=== PATIENT | male | born 1980 | race African-American/Black ===

== ENCOUNTER 2021-07-21 15:40 | Outpatient (CLI) | payer OTHER, SELFPAY ==
--- NOTE | ~2021-07-21 | XR_ITS ---
XR sacrum coccyx min 2V DATE: 07/21/2021 16:09 INDICATION: Sacrococcygeal disorder TECHNIQUE: AP, angled AP and lateral views of sacrum and coccyx COMPARISON: None FINDINGS: The sacral iliac joints appear normal. The pubic symphysis is intact. No sacral fracture or bone destruction. IMPRESSION: Negative Reviewed, dictated and finalized at location A. AREA NETWORK ADMINISTRATOR IMPRESSION: Negative
--- NOTE | 2021-07-21 16:28 | ECG_ITS ---
Measurements Intervals [place] Rate: 69 P: 48 AL: 142 QRS: 28 QRSD: 88 T: 23 QT: 380 QTc: 407 Interpretive Statements SINUS RHYTHM NORMAL ECG Electronically Signed On 07-21-2021 20:13:54 METAL TRIM ERECTOR by Miguel Keita D.O.
[2021-07-21 16:32] LABS: Hematocrit 44.6 % (42.0-52.0); Mean Corpuscular HGB Conc 31.4 g/dl (32-36); Mean Corpuscular Hemoglobin 27.2 pg (26-34); Mean Corpuscular Volume 86.8 fl (80-100); Mean Platelet Volume 9.5 fl (7.4-10.4); Platelet Count Result 284 k/mm3 (150-375); Red Blood Count 5.14 M/mm3 (4.6-6.20); Red Cell Distribution Width 11.7 % (11.5-14.5); White Blood Count 9.2 K/mm3 (4.5-10.0)
[2021-07-21 16:45] LABS: Alanine Aminotransferase 41 U/L (4-50); Albumin Level 4.4 g/dL (3.5-5.1); Alkaline Phosphatase 73 U/L (38-126); Anion Gap 7 mmol/L (8-16); Aspartate Amino Transferase 28 U/L (17-59); Bilirubin,Total 0.3 mg/dL (0.2-1.3); Blood Urea Nitrogen 17 mg/dL (9-20); Calcium 9.4 mg/dL (8.4-10.2); Carbon Dioxide 28 mmol/L (22-30); Chloride 103 mmol/L (98-107); Cholesterol 192 mg/dL (0-200); Estimated Glomerular Filt Rate > 60; Glucose 90 mg/dL (65-110); HDL Direct 44 mg/dL; Sodium 138 mmol/L (137-145); Triglycerides 135 mg/dL (<150)
[2021-07-21 16:56] LABS: LDL Cholesterol Direct 111 mg/dL
[2021-07-21 17:15] LABS: Prostate Specific Antigen 1.2 ng/mL (< OR = 4.0)
== END 2021-07-21 15:41 | disposition home or self-care (01) ==
PROVIDERS: PCP Family Medicine; Visit Provider Nurse Practitioner Family
DX: R00.2 Palpitations (principal); Z68.38 Body mass index [BMI] 38.0-38.9, adult; Z13.220 Encounter for screening for lipoid disorders; Z12.5 Encounter for screening for malignant neoplasm of prostate; M53.3 Sacrococcygeal disorders, not elsewhere classified
CPT/HCPCS: 36415; 72220; 80053; 80061; 84153; 84443; 85027; 93005; G0103

== ENCOUNTER 2023-10-31 09:28 | Day surgery (SDC) | payer OTHER, SELFPAY ==
[2023-10-04 13:10] VITALS: BMI 36.3
[2023-10-08 10:19] VITALS: BMI 36.2
[2023-10-31 10:04] VITALS: BP 129/85; PULSE 71; RESP 16; TEMP 37; O2SAT 98
--- NOTE | 2023-10-31 10:32 | P.PNAN_ITS ---
Anes - Initial Pre Proc Eval Procedure: Operation Date: 10/31/23 11:30 Proposed Procedures p Diagnostic Colonoscopy - Alex Tracey MD Date/Time: 10/31/23 10:32 Surgeon: Alex Tracey MD Pre Op Diagnosis: Family History Malignant Neoplasm of Digestive Sys Patient Data Age: 43 Gender: M Height: 1.75 m Weight: 112.85 kg Last Vital Signs Temp 37.0 C 10/31/23 10:04 Pulse 71 10/31/23 10:04 Resp 16 10/31/23 10:04 BP 129/85 10/31/23 10:04 Pulse Ox 98 10/31/23 10:04 O2 Del Method Room Air 10/31/23 10:04 Allergies Allergy/AdvReac Type Severity Reaction Status Date / Time No Known Allergies Allergy Verified 10/31/23 10:10 Home Medications Medication Instructions Recorded Confirmed Type No Home Medications 10/31/23 10/31/23 History Patient hx anesthesia problems: none Family hx anesthesia problems: none Results Review: All pre-operative results and documents have been reviewed as part of the pre- operative evaluation. [facility] Past Medical History Medical History (Updated 10/03/23 @ 17:11 by Derrek Silva NP) Adult BMI 37.0-37.9 kg/sq m BMI 35.0-35.9,adult BMI 36.0-36.9,adult BMI 38.0-38.9,adult Palpitation PVC (premature ventricular contraction) Screening and evaluation for vasectomy Screening for lipid disorders Viral wart on finger Surgical History Surgical History H/O vasectomy Family History Family History Father Family history of malignant neoplasm Diabetes mellitus Hypertension Mother Asthma COVID-19 Sibling No problems noted. 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 Informed Consent: The patient's anesthetic plan and its attendant risks and benefits were discussed with the patient/family/POA. Questions were solicited and answers provided to the satisfaction of the patient/family/POA.
[2023-10-31] MEDS: LACTATED RINGERS 1,000 ML 150 ML IV CONT (10:42)
--- NOTE | 2023-10-31 10:59 | PM.HPGS ---
History of Present Illness History of Present Illness Consent: Risks, benefits, and alternatives have been discussed and questions answered. Patient agrees to proceed with procedure. Chief complaint: Screening colonoscopy Narrative: Kasi Raymond Jr. is a 43 year old male screening colonoscopy. Family history is significant for an aunt and an uncle have had colon cancer. Patient denies any first-degree relatives with colon polyps or cancer. Patient reports his current weight appetite and bowel movements are normal. He denies abdominal pain. He has had no bleeding. Review of Systems Review of Systems: All systems reviewed & are unremarkable except as noted in HPI and below PMFSH Past Medical History Medical History (Updated 10/31/23 @ 11:01 by Alex Tracey MD) Adult BMI 37.0-37.9 kg/sq m BMI 35.0-35.9,adult BMI 36.0-36.9,adult BMI 38.0-38.9,adult Palpitation PVC (premature ventricular contraction) Screening and evaluation for vasectomy Screening for lipid disorders Viral wart on finger Surgical History Surgical History H/O vasectomy Family History Family History Father Family history of malignant neoplasm Diabetes mellitus Hypertension Mother Asthma COVID-19 Sibling No problems noted. Social History Social History Smoking status: Never smoker Second hand tobacco smoke exposure: No Alcohol intake: current Substance use: never Substance use type: does not use Lack of Transportation: No Lack of Food: Never True Current Housing: I Have Housing Concerned About Future Housing: No Difficulty Paying Gas/Electric Bills: No Difficulty Paying for Meds: No Currently Unemployed: No Education: Associate Degree Difficulty w/ Childcare or Family Care: No Living arrangements: with family Occupation/Education: occupation Additional occupation/education comments: [employer] Gender identity (if verbalized by the patient): Male Spiritual care concerns: No Meds Home Medications and Allergies Home Medications Medication Instructions Recorded Confirmed Type No Home Medications 10/31/23 10/31/23 History Allergies Allergy/AdvReac Type Severity Reaction Status Date / Time No Known Allergies Allergy Verified 10/31/23 10:10 Vital Signs Vital Signs - 24 hr 10/31/23 10:04 Temperature 98.6 F Pulse Rate 71 Respiratory Rate 16 Blood Pressure 129/85 Pulse Oximetry 98 Oxygen Delivery Room Air Exam Narrative: Physical exam reveals patient to be alert. Vital signs stable. HEENT exam is unremarkable. Patient is anicteric. Lungs are clear to auscultation and percussion. Heart is without murmur or extra sounds. Abdomen bowel sounds are present soft nontender with no hepatosplenomegaly. Digital external rectal exam normal. Assessment and Plan Assessment and plan (1) Screen for colon cancer: Code(s): Z12.11 - Encounter for screening for malignant neoplasm of colon Status: Acute Assessment and Plan: Patient presents today for colonoscopy screening. He does have a family history of colon cancer in an aunt and an uncle.
[2023-10-31 11:41] VITALS: BP 124/69; PULSE 62; RESP 18; O2SAT 98
--- NOTE | 2023-10-31 11:50 | WPDANESPN ---
Anes - Prog Note Post-Op Date/Time: 10/31/23 11:50 Cardiovascular status: normal Respiratory status: normal Airway patency: baseline Mental status: baseline Post-Op hydration status: normal Vital Signs: Last Vital Signs Temp 37.0 C 10/31/23 10:04 Pulse 62 10/31/23 11:41 Resp 18 10/31/23 11:41 BP 124/69 10/31/23 11:41 Pulse Ox 98 10/31/23 11:41 O2 Del Method Room Air 10/31/23 11:41 Pain Score (VAS): 0/10 I/O: Intake & Output 10/30/23 10/31/23 10/31/23 23:59 07:59 15:59 Intake Total 400 Balance 400 Patient Feedback: Patient satisfied with anesthetic care.
[2023-10-31 11:51] VITALS: BP 124/69; PULSE 61; RESP 18; O2SAT 100
[2023-10-31 12:01] VITALS: BP 132/76; PULSE 66; RESP 18; O2SAT 100
== END 2023-10-31 12:20 | disposition home or self-care (01) ==
PROVIDERS: PCP Family Medicine; Visit Provider Internal Medicine Gastroenterology
PROC: 0DJD8ZZ Inspection of Lower Intestinal Tract, Via Natural or Artificial Opening Endoscopic (ICD-10-PCS; CPT 45378; principal; 2023-10-31 11:30)
DX: Z12.11 Encounter for screening for malignant neoplasm of colon (principal); D12.3 Benign neoplasm of transverse colon; D12.8 Benign neoplasm of rectum
CPT/HCPCS: 45380

== ENCOUNTER 2023-10-31 12:32 | Outpatient (NON) | payer OTHER, SELFPAY | END 2023-10-31 12:33 | disposition home or self-care (01) | LOC: ANHLAB 11-01 12:33 | PROVIDERS: PCP Family Medicine; Visit Provider Internal Medicine Gastroenterology | DX: Z12.11 Encounter for screening for malignant neoplasm of colon (principal); K63.5 Polyp of colon | CPT/HCPCS: 88305 ==

== ENCOUNTER 2024-12-11 16:34 | Outpatient (CLI) | payer OTHER, SELFPAY ==
--- NOTE | ~2024-12-11 | XR_ITS ---
EXAMINATION: XR chest 2V 12/11/2024 17:03 INDICATION: Bronchitis PROCEDURE: 2 view chest COMPARISON: No prior studies for comparison. FINDINGS: The lungs are clear. The cardiomediastinal silhouette is within normal limits. There are no pleural effusions. There is no pneumothorax suspected. IMPRESSION: 1: NO ACUTE CARDIOPULMONARY DISEASE. Reviewed, dictated and finalized at location A.
--- OUTSIDE RECORDS SUMMARY | 2024-12-11 16:41 | XMS_ITS | Clinical Summary ---
Author Organization [facility] Address Formerly [facility] [place] [address] Care Team Providers Care Nuisance Wildlife Specialist Name Role Phone Reji Villalobos MD Primary Care Provider [phone] Allergies No known active allergies Medications No known medications Social History Tobacco Use Types Packs/Day Years Used Date Smoking Tobacco: Never Assessed Sex and Gender Information Value Date Recorded Sex Assigned at Not on file Legal Sex Male 11:14 PM CDT Gender Identity Not on file Sexual Orientation Not on file Last Filed Vital Signs Vital Sign Reading Time Taken Comments Blood Pressure 136/69 06/19/2024 6:48 PM ELECTRICAL DRAFTER Pulse 82 06/19/2024 6:48 PM ELECTRICAL DRAFTER Temperature 36.6 C (97.8 F) 06/19/2024 6:48 PM ELECTRICAL DRAFTER Respiratory Rate 18 06/19/2024 6:48 PM ELECTRICAL DRAFTER Oxygen Saturation 99% 06/19/2024 6:48 PM ELECTRICAL DRAFTER Inhaled Oxygen Concentration - - Weight 115.7 kg (255 lb) 06/19/2024 6:48 PM ELECTRICAL DRAFTER Height 175.3 cm (5' 9) 06/19/2024 6:48 PM ELECTRICAL DRAFTER Body Mass Index 37.66 06/19/2024 6:48 PM ELECTRICAL DRAFTER Plan of Treatment Health Maintenance Due Date Last Done Comments Annual Physical 08/27/1983 Hepatitis C 1998 DTaP, Tdap and Td Vaccines ( 1 - Tdap) 08/27/1999 Hepatitis B Vaccines (1 of 3 - 19+ 3-dose series) 08/27/1999 COVID-19 Vaccine (4 2023-2 5 season) 2024 06/14/2021, 10/21/2020, 09/30/2020 HPV Vaccines Aged Out No longer eligi ble based on patient's age to complete this topic Meningococcal B Vaccine Aged Out No l onger eligible based on patient's age to complete this topic Meningococcal Vaccine Aged Out No omi ceferino eligible based on patient's age to complete this topic Pneumococcal Vaccine: Pediatrics (0 to 5 Years) and At-Risk Patients (6 to 49 Years) Aged Out No longer eligible b ased on patient's age to complete this topic RSV Immunizations Under 20 Months Aged Out No longer eligible b ased on patient's age to complete this topic Insurance [facility] Care Teams Nuisance Wildlife Specialist Relationship Specialty Start Date End Date Reji Villalobos MD [address] [place] [address] PCP - General FAMILY PRACTICE 06/19/24
--- OUTSIDE RECORDS SUMMARY | 2024-12-11 16:41 | XMS_ITS | Clinical Summary ---
Author Organization [facility] Care Team Providers Care Goat Driver Name Role Phone Unavailable Primary Care Provider Unavailabl e Social History Tobacco Use Types Packs/Day Years Used Date Smoking Tobacco: Never Assessed Sex and Gender Information Value Date Recorded Sex Assigned at Not on file Legal Sex Male 1:33 PM CDT Gender Identity Not on file Sexual Orientation Not on file Plan of Treatment Health Maintenance Due Date Last Done Comments Hepatitis C Virus (HCV) Screening 1980 TdaP Immunization 1980 Hepatitis B Immunization (1 of 3 - 19+ 3-dose series) 08/27/1999 Influenza Immunization (#1) 2024 SARS-COV-2 Immunization ( - 2023-25 season) 2024 Respiratory Syncytial Virus (RSV) Immunization (Adult) (1 - 1-dose 75+ series) 08/27/2055 Meningococcal Immunization (ACWY) Aged Out No longer eligible based on patient's age to complete this topic Pneumococcal Immunization Combined Aged Out No longer eligible based on patient's age to complete this topic Rotavirus Immunization Aged Out No lo nger eligible based on patient's age to complete this topic
--- OUTSIDE RECORDS SUMMARY | 2024-12-11 16:41 | XMS_ITS | Clinical Summary ---
Author Organization [facility] Address [address] [place] [address] Care Team Providers Care Polygraph Examiner Name Role Phone Rafael Mcgee DO Primary Care Provider [phone] Source Comments [facility],non-owned Affiliates and Associated Physician Practices is amultiple site organization consisting of ambulatory clinics and hospital sitesin [place], [place], [place] and [place]. This disclosure is being madepursuant to the Care Everywhere program and may not contain all information available regarding this patient. Last updated 18.[facility] [employer] Allergies No known active allergies Medications * Be aware that medications may not be up to date on this document. Alwaysverify current medications with the patient. No known medications Social History Tobacco Use Types Packs/Day Years Used Date Smoking Tobacco: Never Smokeless Tobacco: Never Tobacco Cessation:Counseling Given: Not Answered Alcohol Use Standard Drinks/Week Comments No 0 (1 standard drink = 0.6 oz pur e alcohol) Sex and Gender Information Value Date Recorded Sex Assigned at Not on file Legal Sex Male 4:21 AM NON LICENSED OPERATOR Gender Identity Not on file Sexual Orientation Not on file Last Filed Vital Signs Vital Sign Reading Time Taken Comments Blood Pressure 119/82 07/25/2023 2:25 PM NON LICENSED OPERATOR Pulse 75 07/25/2023 2:25 PM NON LICENSED OPERATOR Temperature 36 C (96.8 F) 04/12/2023 12:01 PM CDT Respiratory Rate 15 04/12/2023 12:01 PM CDT Oxygen Saturation 99% 04/27/2023 10:29 AM CDT Inhaled Oxygen Concentration - - Weight 113.4 kg (250 lb) 07/25/2023 2:25 PM NON LICENSED OPERATOR Height 175.3 cm (5' 9) 07/25/2023 2:25 PM NON LICENSED OPERATOR Body Mass Index 36.92 07/25/2023 2:25 PM NON LICENSED OPERATOR Plan of Treatment Health Maintenance Due Date Last Done Comments LIPID TESTING 1980 HIV SCREENING 08/27/1995 HEPATITIS C SCREENING 08/22/1998 DTAP/TDAP/TD VACCINES (1 - Tdap) 08/27/1999 HEPATITIS B VACCINE (1 of 3 - 19+ 3-dose series) 08/27/1999 COVID-19 VACCINE (4 - 2023-2 5 season) 2024 06/14/2021, 10/21/2020, 09/30/2020 DEPRESSION SCREENING 06/25/2024 INFLUENZA VACCINE (Season Ended) 2025 SCREENING FOR DIABETES 04/12/2026 04/12/2023 ZOSTER VACCINE (1 of 2) 2030 HIB VACCINE Aged Out No longer eligi ble based on patient's age to complete this topic HPV VACCINE Aged Out No longer eligi ble based on patient's age to complete this topic MENINGOCOCCAL (Group B) VACCINE SHARED DECISION-MAKING Aged Out No longer eligible based on patient's age to complete this topic MENINGOCOCCAL GROUPS A/C/Y/W VACCINE Aged Out No longer eligible b ased on patient's age to complete this topic PNEUMOCOCCAL VACCINE Aged Out No long er eligible based on patient's age to complete this topic Procedures Procedure Name Priority Date/Time Associated Diagnosis Comments COMPREHENSIVE METABOLIC PANEL STAT 04/12/2023 11:26 AM CDT from Last 3 Months or Most Recently Relevant to Health Maintenance Results * (ABNORMAL) COMPREHENSIVE METABOLIC PANEL (04/12/2023 11:26 AM CDT) BUN 16 7 - 26 mg/dL 04/12/2023 12:18 PM CDT [facility] Creatinine 1.13 0.71 - 1.16 mg/dL 04/12/2023 12:18 PM T [facility] Sodium 138 136 - 145 mmol/L 04/12/2023 12:18 PM CDT [facility] Potassium 4.2 3.5 - 4.5 mmol/L 04/12/2023 12:18 PM [facility] Chloride 103 98 - 107 mmol/L 04/12/2023 12:18 PM [facility] CO2 27 22 - 29 mmol/L 04/12/2023 12:18 PM [facility] Glucose 81 70 - 115 mg/dL 04/12/2023 12:18 PM [facility] Calcium 9.4 8.4 - 10.2 mg/dL 04/12/2023 12:18 PM [facility] Protein Total 8.3 6.0 - 8.3 g/dL 04/12/2023 12:18 PM [facility] Albumin 4.0 3.4 - 5.0 g/dL 04/12/2023 12:18 PM [facility] Bilirubin Total 0.6 0.2 - 1.2 mg/dL 04/12/2023 12:18 PM [facility] Alkaline Phosphatase 74 40 - 150 U/L 04/12/2023 12:18 PM [facility] ALT 28 5 - 55 U/L 04/12/2023 12:18 PM [facility] AST 18 5 - 34 U/L 04/12/2023 12:18 PM [facility] Anion Gap 8 6 - 16 04/12/2023 12:18 PM [facility] BUN/Creatinine Ratio 14 7 - 23 04/12/2023 12:18 PM [facility] Osmolality Calculated 286 275 - 295 mOsm/kg 04/12/2023 12:18 PM [facility] Albumin/Globulin Ratio 0.9(L) 1.1 - 2.3 04/12/2023 12:18 PM [facility] eGFR by CKD-EPI 83(L) >=90 mL/min/1.7 3 m2 04/12/2023 12:18 PM [facility] Blood BLOOD SPECIMEN / Unknown Venipuncture / Unknown 04/12/2023 11:26 AM CDT 04/12/2023 11:36 AM [facility] us Jj Little MD LAB - CHEMISTRY ORDERABLES Fi nal Result [facility] [address] [place] [address] [phone] from Last 3 Months or Most Recently Relevant to Health Maintenance Insurance [employer] * Guarantor: KASI RAYMOND Account Type Relation to Patient Date of Phone Billing Address Personal/Family [address] CARE SELF PAY NO INSURANCE Member Subscriber Plan / Payer (Ef fective for All Dates) Name:Kasi Raymond Member ID:Not on file Relation to Subscriber:Not on file Name:KASI RAYMOND Subscriber ID:Not on file Address: [address] [place] [address] Payer ID:Not on file Group ID:Not on file Type:Self Pay Address: [place], [place] * Guarantor: KASI RAYMOND Account Type Relation to Patient Date of Phone Billing Address Personal/Family [address] CARE SELF PAY NO INSURANCE Member Subscriber Plan / Payer (Ef fective for All Dates) Name:Raymond Kasi Allen Member ID:Not on file Relation to Subscriber:Not on file Name:ERICK RAYMONDDANIEL Subscriber ID:Not on file Address: [address] [place] [address] Payer ID:Not on file Group ID:Not on file Type:Self Pay Address: [place], [place] * Guarantor: KASI RAYMOND Account Type Relation to Patient Date of Phone Billing Address Personal/Family [address] SELF PAY NO INSURANCE Member Subscriber Plan / Payer (Ef fective for All Dates) Name:Kasi Raymond Member ID:Not on file Relation to Subscriber:Not on file Name:KASI RAYMOND Subscriber ID:Not on file Address: [address] [place] [address] Payer ID:Not on file Group ID:Not on file Type:Self Pay Address: [place], [place] Care Teams Polygraph Examiner Relationship Specialty Start Date End Date Rafael Mcgee DO [address] [place] [address] PCP - General 08/23/09
--- OUTSIDE RECORDS SUMMARY | 2024-12-11 16:41 | XMS_ITS | Continuity of Care Document ---
Author Organization [facility] Address [address] [place] [address] Phone Care Team Providers Care Director Of Tax Services Name Role Phone Earl Dietz PT Unavailable Unavailable Procedures Procedure Date Therapeutic Exercise Therapeutic Activities Neuromuscular Re-Ed Manual Therapy Therapeutic Exercise Therapeutic Activities Neuromuscular Re-Ed Manual Therapy PT Evaluation Low Complexity Therapeutic Exercise Advance Directives Directive Yes / No Effective Date File Name No Information Encounters Encounter Description Practice Location Reason(s) For Visit Diagnoses Date Provider Providers Copied on Encounter [facility] [address] [place] [address], [id number], tel:[phone] [place] No Information 7 Mirela Elliott. [address] [facility], [address], [address], . tel: [phone] Referring Provider: Reji Villalobos, [address] [place], [address]. tel:[phone] [address] [place] [address], [id number], tel:[phone] [place] No Information 7 Elias Kruse. . Referring Provider: Reji Villalobos, [address] [place], [address]. tel:[phone] [address] [address] [address] [address], [place], [place], [id number], tel:[phone] [place] Pain in right shoulderMuscle weakness (generalized)Stif fness of right shoulder, not elsewhere classifiedAbnorma l posture 201 [address] Elias Kruse. . Referring Provider: Reji Villalobos, [address] [facility], [place], [address]. tel:[phone] Family History Family Member Type Diagnosis Age At Onset No Information Payers Payer name Insurance type Covered constitution party ID Authoriza tirenea(s) [facility] [place] [id number] Social History Type Description Quantity Date Captured Comments Sex Male Smoking Status No Information Chief Complaint And Reason For Visit No Information Reason For Referral Reason For Referral No Information History Of Present Illness Encounter Date Complaint History Of Prese nt Illness No Information Functional Status Date Functional Assessmen t No Information Instructions Date Instruction Additional Infor mation No Information Assessments Type Assessment Date No Information Patient Care Teams Name Effective Dates (start - stop) Status Members No Information
[2024-12-11 17:12] LABS: Hematocrit 44.4 % (42.0-52.0); Hemoglobin 13.6 g/dL (14.0-18.0); Mean Corpuscular HGB Conc 30.6 g/dl (32-36); Mean Corpuscular Hemoglobin 26.6 pg (26-34); Mean Corpuscular Volume 86.7 fl (80-100); Mean Platelet Volume 9.6 fl (7.4-10.4); Platelet Count Result 313 k/mm3 (150-375); Red Blood Count 5.12 M/mm3 (4.6-6.20); Red Cell Distribution Width 12.1 % (11.5-14.5)
[2024-12-11 17:23] LABS: Anion Gap 7 mmol/L (4-12); Blood Urea Nitrogen 20 mg/dL (9-20); Calcium 8.9 mg/dL (8.4-10.2); Carbon Dioxide 28 mmol/L (22-30); Chloride 102 mmol/L (98-107); Cholesterol 182 mg/dL (0-200); Estimated Glomerular Filt Rate > 60; Glucose 89 mg/dL (65-110); HDL Direct 51 mg/dL; Potassium 4.1 mmol/L (3.4-5.0); Sodium 137 mmol/L (137-145); Triglycerides 79 mg/dL (<150)
[2024-12-11 17:34] LABS: LDL Cholesterol Direct 93 mg/dL
[2024-12-11 17:54] LABS: Prostate Specific Antigen 2.4 ng/mL (< OR = 4.0)
== END 2024-12-11 16:35 | disposition home or self-care (01) ==
LOC: ANHLAB 16:39
PROVIDERS: PCP Family Medicine; Visit Provider Family Medicine
DX: J40 Bronchitis, not specified as acute or chronic (principal); I49.3 Ventricular premature depolarization; R00.2 Palpitations; Z13.220 Encounter for screening for lipoid disorders; Z12.5 Encounter for screening for malignant neoplasm of prostate
CPT/HCPCS: 36415; 71046; 80048; 80061; 83735; 84153; 84443; 85027; G0103